=== PATIENT | female | born 1960 | race Caucasian/White ===

== ENCOUNTER 2019-07-25 16:37 | Inpatient (IN) ==
[2019-07-25 17:48] LABS: URINE SOURCE CLEAN CATCH
[2019-07-25 17:50] LABS: BILIRUBIN URINE SMALL (NEGATIVE); BLOOD URINE MODERATE (NEGATIVE); COLOR YELLOW; GLUCOSE URINE NEGATIVE (NEGATIVE); KETONE URINE 40 mg/dL (NEGATIVE); LEUKOCYTES URINE TRACE (NEGATIVE); NITRITE URINE NEGATIVE (NEGATIVE); PROTEIN URINE 100 mg/dL (NEGATIVE); SP GRAVITY URINE 1.025; TURBIDITY URINE HAZY (CLEAR); UROBILINOGEN URINE 2 mg/dL (NORMAL)
--- NOTE | 2019-07-25 17:51 | PROVIDER DOCUMENTATION ---
HPI-Abdominal Pain/GI Problem - General Chief Complaint: Abdominal Pain Stated Complaint: ABD PAIN,V/D Time Seen by Provider: 07/25/19 17:41 Source: patient Allergies/Adverse Reactions: Patient Allergies Allergy/AdvReac Type Severity Reaction Status Date / Time No Known Allergies Allergy Verified 07/25/19 19:55 - History of Present Illness-ABD Nature of Presenting Problems: Patient is a 59 year old white female with history of COPD, dental abscess, and tobacco abuse (1ppd X 32 years) who presents from [facility] for evaluation worsening generalized abdominal pain and diarrhea for past week. Noted to have 25K white count at [facility] this afternoon who instructed patient to go to ER for further evaluation. Patient arrives by private car. Patient reports fever 2 days ago. Reports chronic productive green cough. Denies chest pain, sob, sore throat, or recent use of steroids. Review of Systems - Adult - REVIEW OF SYSTEMS - ADULT Constitutional: reports: fatique. denies: chills, fever Eyes: denies: discharge Ears, Nose, Mouth & Throat: reports: loose teeth, mouth/dental pain, other (dental erosions and decay). denies: throat pain Cardiovascular: denies: chest pain Respiratory: reports: chronic cough. denies: shortness of breath Gastrointestinal: reports: abdominal pain, diarrhea. denies: nausea, vomiting Genitourinary: denies: dysuria Musculoskeletal: reports: muscle aches Integumentary: denies: rash Neurological: reports: no symptoms reported Psychiatric: reports: no symptoms reported Endocrine: reports: no symptoms reported Hematologic/Lymphatic: reports: no symptoms reported All Other Systems: Reviewed and Negative Past History - Adult - PAST MEDICAL HISTORY-ADULT Review of Records: reports: Old Records Reviewed, Nursing Assessment Review, Medications Reviewed, Social history reviewed & non-contributory. Major Childhood Illnesses: reports: denies history Cardiovascular: reports: denies history Respiratory: reports: denies history Gastrointestinal: reports: denies history Obstetrical/Gynecological: reports: denies history Genitourinary: reports: denies history Musculoskeletal: reports: denies history Neurological: reports: denies history Psychiatric: reports: denies history Endocrine/Immune: reports: denies history Other Conditions: reports: denies history - PRIOR SURGERIES/PROCEDURES Surgical/Procedure History: reports: reviewed, not pertinent - IMMUNIZATION STATUS Childhood Immunizations: See Nurse Assessment Flu Vaccine: See Nurse Assessment - FAMILY HISTORY Family History: reviewed, not pertinent Physical Exam-General - CONSTITUTIONAL General Appearance: alert, no apparent distress, other (ambulatory, in no acute distress, speaks in full sentences) - EYES Eyes: other (clear) - HEAD, EARS, NOSE, MOUTH & THROAT HENMT: normocephalic/atraumatic, other (multiple eroded teeth with caries) - NECK Neck: supple - RESPIRATORY Respiratory: no respiratory distress, no accessory muscle use, decreased breath sounds - CARDIOVASCULAR Cardiovascular: regular rate, rhythm - GASTROINTESTINAL (ABDOMEN) Abdominal Exam: soft, tenderness (diffuse). negative: distended, guarding, rebound - LYMPHATIC Lymphatic: no adenopathy - MUSCULOSKELETAL Back Exam: normal inspection Extremity: normal range of motion, non-tender - SKIN Integumentary: normal color - NEUROLOGIC Neurologic: grossly normal - PSYCHIATRIC Psych/Mental Status: oriented x 3, anxious Progress - PLAN OF CARE/RESULTS Progress/Plan/Lab Results: Vital Signs - 8 hr 07/25/19 16:46 Temperature 98.2 F Pulse Rate 100 H Respiratory Rate 18 Blood Pressure 108/64 O2 Sat by Pulse Oximetry 95 Orders Category Date Time Status NPO Diet 07/25/19 16:53 Active CBC WITH DIFF [HEME] Stat Lab 07/25/19 17:40 Ordered COMPREHENSIVE METABOLIC PANEL [CHEM] Stat Lab 07/25/19 17:40 Ordered LIPASE [CHEM] Stat Lab 07/25/19 17:40 Ordered URINALYSIS [URINALYSIS] Stat Lab 07/25/19 17:40 Ordered Abd Pain/OB <20 weeks Stat Oth 07/25/19 16:53 Ordered notified triage nurse to start IV antibiotics ARABELLA Result Diagrams: 07/25/19 17:37 07/25/19 17:37 - XRAY 1 XRAY Study: Chest XRAY Interpretation: RLL infiltrate - CT/MRI 1 CT Study: Abdomen, Pelvis Impression: See EMR Report CT Results: findings c/w colitis - CONSULTS/PCP/HOSPITALIST Notification #1 *Consult/PCP/Hospitalist*: Dr. Gonzales, hospitalist Time Discussed: 21:20 Consult Disposition: Admit Departure - Departure Date of Disposition Decision: 07/25/19 Time of Disposition Decision: 21:20 DIAGNOSIS: Pneumonia Qualifiers: Pneumonia type: due to unspecified organism Laterality: right Lung location: lower lobe of lung Qualified Code(s): J18.1 - Lobar pneumonia, unspecified organism Urinary tract infection Qualifiers: Urinary tract infection type: site unspecified Hematuria presence: with hematuria Qualified Code(s): N39.0 - Urinary tract infection, site not specified Leukocytosis Qualifiers: Leukocytosis type: unspecified Qualified Code(s): D72.829 - Elevated white blood cell count, unspecified Disposition: ADMITTED INPATIENT 09 Certified Medical Emergency: Emergent Condition: Stable Referrals and Follow-Ups: Arian Coyle [Primary Care Provider] - - Critical Care Note This patient required my direct & personal management of CC.: No Attestation - Physician/ ELEONORA Attestation Patient care was provided by Advanced Practice Provider:: No The physician spent face to face time with patient:: Yes Advanced Practice Provider documentation review:: Supervising physician onsite and consulted in the evaluation and care of this patient. The physician did have a face to face encounter with the patient.
[2019-07-25 17:52] LABS: UR EPITHELIAL CELLS <10 /HPF (<10); URINE BACTERIA NEGATIVE /HPF; URINE RBC TNTC /HPF (<10); URINE WBC 20-40 /HPF (<10)
[2019-07-25 17:57] LABS: BASO# 0.03 X1000 (0.0-0.2); BASO% 0.1 % (0.0-0.8); EOS# 0.12 X1000 (0.0-0.7); EOS% 0.5 % (0.0-10.0); HEMATOCRIT 47.8 % (37.0-47.0); HEMOGLOBIN 15.5 g/dL (12.0-16.0); IMM GRAN% 0.4 % (0.0-0.5); LYMPH# 1.79 X1000 (1.2-3.4); LYMPH% 7.2 % (20.5-51.1); MCH 30.5 PG (27-31); MCHC 32.4 g/dL (33-37); MCV 94.1 FL (81-99); MONO% 4.9 % (1.7-9.3); MPV 9.5 FL (7.4-10.4); NEUT% 86.9 % (42.2-75.2); PLT 233 X1000 (130-400); RBC 5.08 XMIL (4.2-5.4); RDW 13.3 % (11.5-14.5); WBC 24.74 X1000 (4.8-10.8)
[2019-07-25] MEDS ORDERED: ZOSYN 3.375 GM in NS 50 ML IV ONE (17:59)
[2019-07-25 18:20] LABS: AGAP 14; ALBUMIN 3.7 g/dL (3.5-5.0); ALKALINE PHOSPHATASE 113 U/L (32-104); BUN 17 mg/dL (8-22); CALCIUM 9.3 mg/dL (8.8-10.2); CHLORIDE 94 mmol/L (98-107); COSMO 271; CREATININE 0.8 mg/dL (0.5-0.9); ESTIMATED GFR > 60; GLUCOSE 91 mg/dL (70-104); GOT 13 U/L (10-30); GPT 8 U/L (10-36); LIPASE 14 U/L (13-60); POTASSIUM 3.7 mmol/L (3.5-5.1); SODIUM 135 mmol/L (136-145); TCO2 27 mmol/L (25-35); TOTAL BILIRUBIN 0.46 mg/dL (0.20-1.00); TOTAL PROTEIN 7.5 g/dL (6.3-8.3)
[2019-07-25] MEDS ORDERED: NS 1,000 ML IV ONE (20:13)
[2019-07-25 20:19] LABS: INR 1.17
[2019-07-25 20:20] LABS: PTT 37.3 Seconds (22.3-41.8)
[2019-07-25] MEDS ORDERED: ZOFRAN IV ONE (20:25)
[2019-07-25] MEDS ORDERED: ZOFRAN ONE (20:32)
--- NOTE | 2019-07-25 20:46 | Diag Imaging Result Doc PS360 ---
EXAM: CHEST-2 VIEWS 07/25/2019 HISTORY: leukocytosis,cough TECHNIQUE: PA and lateral chest COMMENT: There is ill-defined opacity in the right lower lobe costophrenic sulcus laterally which was not present on 04/11/2019. This may be in the lateral portion of the right middle lobe. Otherwise are has been no significant change. IMPRESSION: Minimal bronchopneumonia in the right base. Electronically signed by Alvaro Bobby 07/25/2019 8:44 PM
[2019-07-25] MEDS ORDERED: ZITHROMAX 500 MG/NS 500 MG/250 ML IVPB IV ONE (20:53)
--- NOTE | 2019-07-25 21:05 | Diag Imaging Result Doc PS360 ---
EXAM: CT ABD/PELVIS W/IV CONT ONLY 07/25/2019 HISTORY: abdominal pain, leukocytosis TECHNIQUE: This exam was performed using automated exposure control, adjustment of mA or kV according to patient size, and/or use of iterative reconstruction technique. COMMENT: There are no previous studies. There is no evidence of acute disease in the visualized portion of the chest. The aorta is not distended and the mesenteric and renal arteries are patent. There is a staghorn calculus in the right lower pole. There is a granuloma in the spleen. The liver is unremarkable. The adrenal glands are not enlarged. There is some prominence of the pancreatic duct which measures almost 5 mm distally. The common bile duct measures almost 8 mm above the pancreatic head. There are no apparent gallstones. There are multiple cortical cysts present in the right kidney. There is generalized mucosal thickening in the colon. The small bowel is not distended. There is diverticulosis in the descending colon. Pelvis: There is some mucosal thickening present in the ascending and rectosigmoid colon. The appendix is normal in appearance. There is an air-fluid level present in the rectum. The urinary bladder is not distended. There is no evidence of free fluid. There is degenerative facet arthropathy particularly at the L5-S1 level. There is no evidence of acute bony abnormality. IMPRESSION: Right nephrolithiasis. Generalized mucosal thickening in the colon which is suggestive of colitis. Electronically signed by Alvaro Bobby 07/25/2019 9:02 PM
[2019-07-26] MEDS ORDERED: TYLENOL PO PRN (00:27)
[2019-07-26] MEDS ORDERED: ZOFRAN IV PRN (00:27)
[2019-07-26] MEDS: NS 1,000 ML IV SCH ×3 (00:50→15:30)
[2019-07-26] MEDS: ZOSYN 3.375 GM in NS 50 ML IV SCH ×4 (04:20→20:22)
--- NOTE | 2019-07-26 06:31 | HISTORY AND PHYSICAL ---
PRIMARY CARE PHYSICIAN: Dr. Coyle. CHIEF COMPLAINT: Toothache, fever, cough. HISTORY OF PRESENTING ILLNESS: A 59-year-old female with a history of COPD who had presented to urgent care several times due to complaints of toothache, having fever and cough. She was given amoxicillin and sent home. However she states that she could not tolerate the meds and quit taking it. She again returned to the emergency department, was evaluated found to have an elevated white count. She had also imaging done which did show possible bronchopneumonia. Due to these findings, it was thought that she will require admission for further management. At the time of my examination she denied any headache, nausea, vomiting, diarrhea, chest pain, hemoptysis, but complained of cough, shortness of breath and to toothache. PAST MEDICAL HISTORY: Includes COPD. PAST SURGICAL HISTORY: None. ALLERGIES: No known drug allergies. CURRENT MEDICATIONS: None. SOCIAL HISTORY: A 30 pack years history of smoking. Admits to social alcohol use. Denies any illicit drug use. FAMILY HISTORY: Positive for coronary disease in Mother and Father. REVIEW OF SYSTEMS: Fourteen point review of system is as in HPI. Other systems negative. PHYSICAL EXAMINATION: GENERAL: Cooperative, friendly female. She is resting comfortably now. VITAL SIGNS: Temperature 98.2 degrees, pulse 100, respiration 18, blood pressure 108/64. HEENT: Atraumatic, normocephalic. Extraocular movements intact. PERRLA. NECK: No masses. CHEST: Bibasilar rales. CARDIOVASCULAR: Regular rate and rhythm. ABDOMEN: Soft. Positive bowel sounds. EXTREMITIES: No edema. NEUROLOGIC: She is awake, alert, oriented x3. : No bladder distention. SKIN: Warm. LABORATORIES AND STUDIES: WBCs 24.74, hemoglobin 15.5, hematocrit 47.8, platelets 233,000. Sodium 135, potassium 3.7, chloride 94, CO2 27, BUN is 17, creatinine 2.8, glucose 91. Troponin 0.010. Chest x-ray shows bronchopneumonia right base. ASSESSMENT: A 59-year-old female with a history of chronic obstructive pulmonary disease who had presented to emergency department due to having persistent fever, cough. She was evaluated in the emergency department. She had imaging done which did show bronchopneumonia. Subsequently she will require admission for further management. 1. Acute bronchopneumonia. 2. Chronic obstructive pulmonary disease. PLAN: 1. We will admit patient to medical floor with telemetry. 2. We will check blood cultures. Start patient on IV antibiotics. 3. We will continue with DuoNeb. 4. I counseled patient extensively on smoking cessation. 5. Put patient on DVT prophylaxis with SCDs. 6. We will continue to follow, reassess, make further recommendation based on patient's clinical course. cc: Nathaniel Gonzales MD MTDD
[2019-07-26 08:44] LABS: BASO# 0.05 X1000 (0.0-0.2); BASO% 0.2 % (0.0-0.8); EOS% 2.5 % (0.0-10.0); HEMATOCRIT 44.5 % (37.0-47.0); HEMOGLOBIN 14.6 g/dL (12.0-16.0); IMM GRAN# 0.09 X1000 (0.0-0.04); IMM GRAN% 0.4 % (0.0-0.5); LYMPH# 1.83 X1000 (1.2-3.4); LYMPH% 9.1 % (20.5-51.1); MCHC 32.8 g/dL (33-37); MCV 94.5 FL (81-99); MONO# 1.43 X1000 (0.11-0.59); MONO% 7.1 % (1.7-9.3); MPV 9.6 FL (7.4-10.4); NEUT# 16.25 X1000 (1.4-6.5); NEUT% 80.7 % (42.2-75.2); PLT 224 X1000 (130-400); RBC 4.71 XMIL (4.2-5.4); RDW 13.1 % (11.5-14.5); WBC 20.15 X1000 (4.8-10.8)
[2019-07-26 09:11] LABS: AGAP 14; BUN 10 mg/dL (8-22); CALCIUM 8.8 mg/dL (8.8-10.2); CHLORIDE 99 mmol/L (98-107); COSMO 275; CREATININE 0.6 mg/dL (0.5-0.9); ESTIMATED GFR > 60; GLUCOSE 98 mg/dL (70-104); POTASSIUM 3.3 mmol/L (3.5-5.1); SODIUM 138 mmol/L (136-145); TCO2 25 mmol/L (25-35)
[2019-07-26 10:08] LABS: BANDS 8 % (0-1); LYMPHS 16 % (21-51); SEGS 76 % (42-75)
[2019-07-26] MEDS ORDERED: DUONEB (A & A) INH PRN (19:13)
--- NOTE | 2019-07-26 19:32 | PROGRESS NOTE ---
DATE: 07/26/2019 INTERVAL HISTORY: No acute events overnight. SUBJECTIVE: Ms. Adams is feeling better. She states her diarrhea is coming down. Her cough is worse than her usual cough. She is an active smoker, and I counseled her about annual influenza vaccinations as well as smoking cessation. Apparently, the patient had started developing nausea, vomiting, and diarrhea after a course of amoxicillin, after which it continued. OBJECTIVE: Vital Signs: Temperature of 98.4, pulse 79, respiratory rate 16, blood pressure 101/65, saturating 95% on room air. General: She is not in any acute distress. HEENT: Oral cavity is moist. Lungs: Air entry bilaterally equal. No wheeze, rhonchi, or crackles. She has bronchial lung sounds in the right infrascapular region. Cardiovascular: S1, S2 normal. No murmur or gallop. Abdomen: Soft, nontender. Active bowel sounds. She does not have any lower extremity edema. LABS: Suggestive of improving leukocytosis, normocytic anemia, normal platelet count, and hypokalemia, currently being repleted. Microbiology: Blood cultures are in lab. Influenza screen was negative. Abdomen/pelvis CT was suggestive of colitis. ASSESSMENT AND PLAN: 1. Acute colitis associated with use of amoxicillin. Follow up C difficile antigen and toxin. The patient has been tolerating oral diet well, so I will stop intravenous fluids, 2. Right lower lobe pneumonia. Continue intravenous Zosyn. Follow up urine antigen and intravenous Zosyn. I will give her albuterol/ipratropium nebulization if needed, though currently she is not wheezing. 3. Hypokalemia due to diarrhea. Will replete with oral potassium. 4. Active tobacco abuse. She was counseled about smoking cessation. 5. History of chronic obstructive pulmonary disease with [id number] smoking history. Currently not in acute exacerbation. She takes albuterol at home. DISPOSITION: Continue to monitor the patient inside the hospital. I await stool studies as well as final blood culture results. I am anticipating discharge in next 24 to 48 hours depending on her clinical course. Plan of care discussed with Ms. Adams. All of her questions have been satisfactorily answered. cc: Sen Buchanan MD
[2019-07-26] MEDS: KLOR-CON PO SCH (22:06)
[2019-07-27] MEDS: ZOSYN 3.375 GM in NS 50 ML IV SCH ×3 (02:18→15:34)
[2019-07-27] MEDS: KLOR-CON PO SCH (02:18)
[2019-07-27 07:02] LABS: BASO# 0.02 X1000 (0.0-0.2); BASO% 0.1 % (0.0-0.8); EOS# 0.47 X1000 (0.0-0.7); EOS% 2.9 % (0.0-10.0); HEMATOCRIT 43.4 % (37.0-47.0); HEMOGLOBIN 14.1 g/dL (12.0-16.0); IMM GRAN# 0.07 X1000 (0.0-0.04); IMM GRAN% 0.4 % (0.0-0.5); LYMPH# 1.77 X1000 (1.2-3.4); MCH 30.8 PG (27-31); MCHC 32.5 g/dL (33-37); MCV 94.8 FL (81-99); MONO# 1.17 X1000 (0.11-0.59); MONO% 7.3 % (1.7-9.3); MPV 9.7 FL (7.4-10.4); NEUT# 12.53 X1000 (1.4-6.5); NEUT% 78.3 % (42.2-75.2); PLT 245 X1000 (130-400); RBC 4.58 XMIL (4.2-5.4); RDW 13.1 % (11.5-14.5); WBC 16.03 X1000 (4.8-10.8)
[2019-07-27] MEDS: VANCOCIN PO SCH ×2 (10:00→15:29)
[2019-07-27 11:58] VITALS: BP 111/66
[2019-07-27] MEDS ORDERED: FLU VACCINE IM ONE (14:56)
--- NOTE | 2019-07-27 15:36 | DISCHARGE SUMMARY ---
ADMISSION DATE: 07/25/2019 DISCHARGE DATE: 07/27/2019 DISCHARGE DISPOSITION: Home. DISCHARGE CONDITION: Hemodynamically stable. Her cough, chest pain, shortness of breath have resolved. Her diarrhea has significantly gone down in frequency. I educated her about C. difficile colitis, pneumonia, and answered all of her questions. DISCHARGE DIAGNOSES: 1. Acute Clostridium difficile colitis. 2. Right lower lobe pneumonia. 3. Hypokalemia. 4. Active tobacco abuse. 5. History of chronic obstructive pulmonary disease with 30 pack year smoking history. She was counseled about smoking cessation. DISCHARGE MEDICATIONS: 1. Vancomycin 125 mg every 6 hours for 10 days. 2. Levaquin 750 mg daily 2 tablets. VITAL SIGNS: At the time of discharge, temperature 98.4 degrees, pulse 67, respiratory rate 18, blood pressure 110/66, saturating 97% room air. PHYSICAL EXAMINATION: HEENT: At time of discharge, oral cavity is moist. Lungs: Air entry bilaterally equal. No wheeze, rhonchi, or crackles. Heart: S1, S2 normal. No murmur, rub, or gallop. Abdomen: Soft, nontender. Extremities: No lower extremity edema. Neurologic: She was alert and oriented x3. LABS: At the time of discharge, her WBC is decreasing from 24,000 to 16,000 at the time of discharge. Hemoglobin is 14.1, platelet 245,000. Her potassium was 3.3 which was repleted. BUN is 10, creatinine 0.6. MICROBIOLOGY: Blood culture did not have any growth. Influenza screen was negative. C. difficile antigen and toxin were positive. IMAGING: Abdomen and pelvis CT on presentation had right nephrolithiasis. There is mucosal thickening in the colon suggestive of pancolitis. Chest x-ray on July 25 had minimal bronchopneumonia in the right base. HOSPITAL COURSE SUMMARY: Ms. Adams is a 59-year-old lady who came in on July 25, 2019 with chief complaints of subjective fever, cough, and diarrhea. Apparently, patient has been having a toothache and had seen urgent care clinic where she was provided a prescription of amoxicillin. She was also having some cough and fever at that time. However, after amoxicillin, she started developing diarrhea to an extent she had multiple bowel movements throughout the day and was nauseous and was not able to eat by mouth, so she decided to come to the emergency room. Throughout the hospital she has been afebrile and on presentation she was tachycardic with heart rate of 100, though she was normotensive. Chest x-ray suggested right lower lobe infiltrate and CT scan of the abdomen and pelvis had pancolitis. She was admitted for further management. She was started on intravenous antibiotics for right lower lobe pneumonia and stool studies were performed which detected C. difficile antigen and toxin positive. It was thought that her C. difficile colitis was related to amoxicillin she had taken for her toothache and she was started on oral vancomycin. Her IV antibiotics for pneumonia was slowly tapered down. At the time of discharge, she will be provided a brief prescription of antibiotics for pneumonia and vancomycin for C. difficile. Her pneumonia seems to have significantly improved. She was advised to follow up with outpatient provider and keep herself hydrated with electrolytes. All of her questions were satisfactorily answered. TIME SPENT: Less than 30 minutes of time were spent in discharging this patient. cc: Sen Buchanan MD
== END 2019-07-27 15:46 | disposition home or self-care (01) ==
LOC: ED 16:37 → EDIPHOLD 23:50 → SUATTDRO 23:50 → 4N 07-26 02:38
PROVIDERS: ATTEND Internal Medicine